=== PATIENT | female | born 1990 | race American Indian/Alaskan Native ===

== ENCOUNTER 2018-02-02 17:50 | Emergency (ER) | payer MEDICAID ==
[2018-02-02 17:54] VITALS: BMI 33.0
[2018-02-02 20:38] LABS: URINE APPEARANCE SLIGHT-CLOUDY (CLEAR); URINE BILIRUBIN NEGATIVE (NEGATIVE); URINE BLOOD NEGATIVE (NEGATIVE); URINE COLOR YELLOW (YELLOW); URINE GLUCOSE (UA) NEGATIVE (NEGATIVE); URINE LEUKOCYTE ESTERASE SMALL Leu/uL (NEGATIVE); URINE PROTEIN NEGATIVE mg/dL (<30 mg/dL); URINE UROBILINOGEN 0.2 E.U./dL (<1 E.U./dL)
[2018-02-02 20:45] LABS: URINE BACTERIA MANY (NEG); URINE EPITHELIAL CELLS 0 - 2 /hpf (0-5); URINE RBC NEGATIVE /hpf (0-2)
--- NOTE | 2018-02-02 21:49 | ED PDOC ---
Arrival/HPI - General Chief Complaint: Back Pain Historian: Patient - History of Present Illness Narrative History of Present Illness (Text): 02/02/18 21:47 27yo morbidly obese female with no past medical history who present with complaint of lower back pain that radiates to her buttocks x one week. States pain became worse 2days ago after lifting an object. States she took OTC analgesic yesterday with mild relieve. Pain is worse with any movement. Denies urinary symptoms, saddle anesthesia, urinary/fecal incontinence, abdominal pain, fever, chills, nausea, vomiting, any other complaint. Past Medical History - Provider Review Nursing Documentation Reviewed: Yes - Infectious Disease Hx of Infectious Diseases: None - Reproductive Menopause: No - Psychiatric Hx Substance Use: Yes - Anesthesia Hx Anesthesia: No Family/Social History - Physician Review Nursing Documentation Reviewed: Yes Family/Social History: Unknown Family HX Smoking Status: Current Some Days Smoker Hx Alcohol Use: No Hx Substance Use: Yes Substance used: marijuana Allergies/Home Meds Allergies/Adverse Reactions: Allergies No Known Allergies Allergy (Verified 02/02/18 20:19) Review of Systems - Physician Review All systems were reviewed & negative as marked: Yes - Review of Systems Constitutional: Normal Eyes: Normal ENT: Normal Respiratory: Normal Cardiovascular: Normal Gastrointestinal: Normal Genitourinary Female: Normal Musculoskeletal: Back Pain Skin: Normal Neurological: Normal Endocrine: Normal Hemo/Lymphatic: Normal Psychiatric: Normal Physical Exam Vital Signs Reviewed: Yes Vital Signs Temp Pulse Resp BP Pulse Ox 02/02/18 17:53 98.3 F 114 H 18 138/88 99 Temperature: Afebrile Blood Pressure: Normal Pulse: Tachycardic Respiratory Rate: Normal Appearance: Positive for: Well-Appearing, Non-Toxic, Comfortable Pain Distress: None Mental Status: Positive for: Alert and Oriented X 3 - Systems Exam Head: Present: Atraumatic, Normocephalic Pupils: Present: PERRL Extroacular Muscles: Present: EOMI Conjunctiva: Present: Normal Mouth: Present: Moist Mucous Membranes Neck: Present: Normal Range of Motion Respiratory/Chest: Present: Clear to Auscultation, Good Air Exchange. No: Respiratory Distress, Accessory Muscle Use Cardiovascular: Present: Regular Rate and Rhythm, Normal S1, S2. No: Murmurs Abdomen: No: Tenderness, Distention, Peritoneal Signs Back: Present: Midline Tenderness, Paraspinal Tenderness, Pain with Leg Raise (B/L) Upper Extremity: Present: Normal Inspection. No: Cyanosis, Edema Lower Extremity: Present: Normal Inspection. No: Edema Neurological: Present: GCS=15, CN II-XII Intact, Speech Normal Skin: Present: Warm, Dry, Normal Color. No: Rashes Psychiatric: Present: Alert, Oriented x 3, Normal Insight, Normal Concentration Medical Decision Making ED Course and Treatment: 02/03/18 01:25 Pt presented with stated history. She was ambulatory and neurologically intact. LS xray - No acute finding Urinalysis- UTI and trichomoniasis PT was treated with Rocephin and azithro for chlamydia. Culture pending Her pain was controlled with medication in Emergency department. Result was DW the pt and she DC home with flagyl, Keflex, ibuprofen and flexeril Referred to her PMD. - Lab Interpretations Lab Results: Lab Results 02/02/18 20:22: Urine Color Yellow, Urine Appearance Slight-cloudy, Urine pH 6.0, Ur Specific [place] 1.020, Urine Protein Negative, Urine Glucose (UA) Negative, Urine Ketones Negative, Urine Blood Negative, Urine Nitrate Positive H , Urine Bilirubin Negative, Urine Urobilinogen 0.2, Ur Leukocyte Esterase Small H, Urine RBC Negative, Urine WBC 1 - 3, Ur Epithelial Cells 0 - 2, Urine Bacteria Many, Urine Other Trichomonas - RAD Interpretation Radiology Orders: 02/02/18 20:19 LS SPINE WITH OBL > 18 YRS OLD [RAD] Stat - Medication Orders Current Medication Orders: Discontinued Medications Cyclobenzaprine HCl (Flexeril) 10 mg PO STAT STA Stop: 02/02/18 20:21 Last Admin: 02/02/18 20:31 Dose: 10 mg Ketorolac Tromethamine (Toradol) 60 mg IM STAT STA Stop: 02/02/18 20:20 Last Admin: 02/02/18 20:30 Dose: 60 mg MAR Pain Assessment Document 02/02/18 20:30 IT (Rec: 02/02/18 20:31 IT [facility] [id number]) Pain Reassessment Is this a pain reassessment? Yes Sleep Is patient sleeping during reassessment? No Presence of Pain Presence of Pain Yes Pain Scale Used Protocol: PSCALES Pain Scale Used Numeric IM Administration Charges Document 02/02/18 20:30 IT (Rec: 02/02/18 20:31 IT [facility] [id number]) Injection Site MAR Injection Site Left Gluteus Dustin Charges for Administration # of IM Administrations 1 Disposition/Present on Arrival - Present on Arrival Any Indicators Present on Arrival: No History of DVT/PE: No History of Uncontrolled Diabetes: No Urinary Catheter: No History of Decub. Ulcer: No History Surgical Site Infection Following: None - Disposition Have Diagnosis and Disposition been Completed?: Yes Diagnosis: Trichomoniasis, UTI (urinary tract infection), Back pain Disposition: HOME/ ROUTINE Disposition Time: 21:55 Patient Plan: Discharge Condition: STABLE Discharge Instructions (ExitCare): Urinary Tract Infections in Adults, Asymptomatic Bacteriuria, Trichomoniasis (DC) Additional Instructions: Avoid sex until your get your result and if positive have your sexual partner treated Take medication as directed Rest, apply warm compress Follow up with your doctor Return to Emergency department for any new or worsening symptoms Prescriptions: Cephalexin [cephalexin] 500 mg PO TID #21 cap Cyclobenzaprine [Cyclobenzaprine HCl] 10 mg PO BID #10 tab RX: Ibuprofen [Motrin Tab] 600 mg PO Q6 #15 tab metroNIDAZOLE [Flagyl] 500 mg PO BID #14 tab Referrals: Erendira Romo MD [Medical Doctor] - Follow up with primary Forms: [email or web address] ([place])
[2018-02-02] MEDS ORDERED: cefTRIAXone (Rocephin) 250 mg Inj IM STA (21:50)
[2018-02-02 22:16] VITALS: RESP 17
[2018-02-02 22:22] VITALS: BP 136/68; PULSE 88; TEMP 98.1; O2SAT 98
--- NOTE | 2018-02-03 09:21 | RAD ---
Date of service: 02/02/2018 PROCEDURE: Radiographs of the Lumbar Spine. HISTORY: back pain COMPARISON: No prior. FINDINGS: BONES: Normal alignment. No listhesis. No fracture. DISC SPACES: Unremarkable. OTHER FINDINGS: None. IMPRESSION: Unremarkable radiographs of the lumbar spine.
== END 2018-02-02 22:21 | disposition home or self-care (01) ==
LOC: ED 17:50
DX: M54.5 Low back pain (principal); A59.9 Trichomoniasis, unspecified; N39.0 Urinary tract infection, site not specified; E66.01 Morbid (severe) obesity due to excess calories
CPT/HCPCS: 72110; 81001; 87086; 87491; 87591; 96372; 99283; J0696; J1885